=== PATIENT | female | born 1990 | race African-American/Black ===

== ENCOUNTER 2020-07-30 09:48 | Emergency (ER) | payer MEDICARE, MEDICAID ==
[2020-07-30] MEDS ORDERED: Ibuprofen 200 MG TAB ONE (10:04)
[2020-07-30] MEDS ORDERED: Acetaminophen 500 MG TAB ONE (10:04)
[2020-07-30] MEDS ORDERED: hydrOXYzine 25 MG TAB ONE (10:04)
--- NOTE | 2020-07-30 10:19 | RAD ---
Chest one view HISTORY: Hemoptysis. FINDINGS: Cardiac silhouette and pulmonary vasculature are unremarkable. Mediastinum is midline. No c onfluent airspace consolidation or evidence of pneumothorax. IMPRESSION : No abnormalities are demonstrated.
== END 2020-07-30 10:25 | disposition home or self-care (01) ==
LOC: ERS 09:48
DX: F41.9 Anxiety disorder, unspecified (principal); J45.909 Unspecified asthma, uncomplicated; R73.03 Prediabetes; Z79.899 Other long term (current) drug therapy
CPT/HCPCS: 71045; 93005